=== PATIENT | female | born 1950 | race Caucasian/White ===

== ENCOUNTER → 2016-11-16 | Day surgery (SDC) | payer MEDICARE, OTHER ==
[~2016-11-16] VITALS: Ht 162.6 cm; Wt 68.0 kg
[~2016-11-16] MED LIST: HYDR-4003 PO; Lactated Ringer's 1,000 ML IV ONE; Lactated Ringer's 1,000 ML IV SCH; MetoCLOpramide 5 mg/mL 2 mL Inj IVPUSH PRN; Ondansetron 2 mg/mL 2 mL Inj IVPUSH PRN; PEPS1TAB11 PO; Propofol 10,000 mCg/mL 20 mL Inj ONE; TURM500C7 PO; UBID50TA3 PO
[2016-11-16 09:10] VITALS: BP 138/86; PULSE 64; RESP 16; O2SAT 96
[2016-11-16 10:27] VITALS: BP 105/69; PULSE 72; RESP 17; O2SAT 94
[2016-11-16 10:37] VITALS: BP 106/70; PULSE 61; RESP 15; O2SAT 95
[2016-11-16 10:47] VITALS: BP 129/81; PULSE 63; RESP 17; O2SAT 97
--- NOTE | 2016-11-16 10:52 | ENDO ---
[address] [address] ENDOSCOPY PROCEDURE PATIENT: SAL BURDICK V : 1950 MR#: [id number] ADMIT: 11/16/2016 JOB ID: [id number] DATE: 11/16/16 REFERRING PROVIDER: Maria Antonia Brenner PROCEDURE: Esophagogastroduodenoscopy with balloon dilatation and biopsy. INDICATIONS: A 66-year-old female with intermittent symptoms of heartburn and dysphagia. EGD is pursued. EQUIPMENT: GIF H 180 J. SEDATION: Monitored anesthesia as provided by Dr. Chapin Reina. COMPLICATIONS: None identified. PROCEDURAL INFORMATION: After the risks and benefits were explained, written and verbal informed consent was obtained. The patient was brought into the endoscopy suite and placed in the left lateral decubitus position. Sedation was achieved as above. The scope was introduced into the mouth through the bite block, and advanced to the second portion of the duodenum. The scope was slowly withdrawn to carefully examine the mucosa for any defects or lesions. Retroflexed views were accomplished in the stomach. The stomach was decompressed. Dilatation was pursued as described below. Ultimately, the stomach was decompressed. The scope removed from the patient who tolerated the procedure well. FINDINGS: 1. Duodenum: This appeared visually unremarkable from the bulb through to the second portion. 2. Stomach: No ulcers, no outlet obstruction. Retroflexed views disclosed a moderate sliding hiatal hernia. Mild diffuse erosive gastropathy was appreciated and random biopsy was taken for exclusion of Helicobacter. 3. Esophagus: The squamocolumnar junction correlated with the top of the gastric folds. The GEJ was at about 35 cm from the incisors. The patient had a moderate Schatzki ring with a small amount of inflammation consistent with LA grade A erosive esophagitis just overlapping the ring into the distal esophagus. The lumen size was perhaps down to about 11 or 12 mm. We used a 15-18 mm CRE balloon, and while the balloon was in the 15 mm position the patient hiccoughed, which caused a slight tear through the Schatzki ring. There was an immediate small amount of bleeding. We, therefore, elected to deflate the balloon entirely and not pursue any further dilatation in that the effect that we would have got with 18 was already obtained at that 15 mm eder with her hiccough. Bleeding was not sustained. Dilatation affect was moderate. We additionally took a disruptive biopsy through the other side of the Schatzki ring and submitted this for histopathology. The remainder of the esophagus was unremarkable. ENDOSCOPIC DIAGNOSES: 1. Moderate hiatal hernia. 2. LA grade A erosive esophagitis. 3. Moderate Schatzki ring status post dilatation. 4. Mild erosive gastropathy. RECOMMENDATIONS: 1. Await histopathology. 2. Followup in GI clinic in the next 4-6 weeks to gauge effect. 3. I would recommend a two week course of proton pump inhibitor therapy. 4. Repeat dilatation can be pursued as needed depending on response to today's intervention. 5. If Gonzales's epithelium is identified, then a repeat surveillance scope at the very least, would need to be accomplished in the next 9-12 months.
--- NOTE | 2016-11-16 12:05 | PCM.HPANE ---
Patient Data Date of Service: Nov 16, 2016 Surgeon Admitting Provider: Attending Provider:Rahul Salas MD Primary Care Physician:Maria Antonia Brenner MD Other Provider:Armand Livingston Anesthesia Reason for Visit GERD Ht/WT & BMI Height (Feet): 5 Height (Inches): 4 Weight (Kilograms): 68.04 Body Mass Index 25.00 Allergies Coded Allergies: Sulfa (Sulfonamide Antibiotics) (Verified Allergy, Unknown, 11/12/16) Past Anesthesia History Anesthesia History: Denies:: Abnormal Airway, Anesthesia Reactions, Fam Anesthesia Reaction, Fam Malignant Hypertherm, Malignant Hyperthermia Diabetes History Hx Diabetes?: No MRSA MRSA: No Medications Reported Medications Pepsin/Chelsea/Ox Bile/Anderson/Bet/Pap (Enzymatic Digestant ER Tablet)1 Each Tablet.er1 Each PO 11/12/16 Turmeric Root Extract (Turmeric)500 Mg [id number] Mg PO 11/12/16 Ubidecarenone (Coq10)50 Mg Tab.chew50 Mg PO 11/12/16 Discontinued Scripts Hydrocodone-Acetaminophen 5-325 mg 1 Each Tablet1-2 Tablet PO Q4H PRN For Pain # 20 TABLET Ref 0 Prov:Logan Macdonald MD 10/24/15 History History of ENT Problems?: Yes HEENT History: Positive for:: Dysphagia (occasional meat, bread or pills sticking) Denture Type: None Teeth Condition: Within Normal Limits Hx of Heart Problems?: No Cardiovascular History: Denies:: AICD Cardiac Surgery Pacemaker Valvular Heart Disease Hx of Respiratory Problem?: No Respiratory History: Denies:: Asthma Hx Neurologic Problems?: No Neurological History: Denies:: CVA Hx of GI Problems?: Yes Gastrointestinal History: Positive for:: Gastroesphageal Reflux Hx of Problems?: No HX of Peritoneal Dialysis: No Female Hx: Denies:: Currently Hx Musculoskeletal Problems?: Yes Musculoskeletal History: Positive for:: Joint Replacement (bilat hips) Denies:: Fibromyalgia Psycho Social History: Denies:: Anxiety Hx Depression Hx Surgeries?: Yes (acl left knee, bilat hip, 2 fx arms) Hx Any Other Health Problems?: No Hx Diabetes: No Hx Alcohol Use: Yes (3x week) Smoking Status: Unknown if Ever Smoker Stop/Bang Treated for Sleep Apnea?: No Do You Have a CPAP Machine?: No S-Snoring: Do You Snore Loudly: Yes T-Tired: feel tired, fatigued: No O-Obsered: Observed not breath: No P-Blood Pressure: treated: No B- Body Mass Index > 35 kg/m2: Yes A- Age over 50: Yes N- Neck Large Circumference: No G- Gender Male: No ELIZABETH Total Score: 3 ELIZABETH Risk Assessment: Low Risk, <3 Yes ELIZABETH Category 2: Yes Risk Assessment Category Category 1A: Patient has history of documented sleep apnea, and HAS NOT received any narcotic, sedative or anesthesia administration during this stay. Category 1B: Patient has history of documented sleep apnea, and HAS received any narcotic , sedative or anesthesia administration during this stay Category 2: Patient has SUSPECTED Obstructive Sleep Apnea, and HAS received any narcotic , sedative or anesthesia administration during this stay. Category 3: Patient has SUSPECTED Obstructive Sleep Apnea and HAS NOT received narcotic, sedative or anesthesia administration during this stay. Category 4: Outpatient in Procedural Areas with known sleep apnea or who screen positive for High Risk via the STOP/BANG questionnaire. Exam Exam Vital Signs Vital Signs Date Time Temp Pulse Resp B/P Pulse Ox O2 Delivery O2 Flow Rate FiO2 11/16/16 10:47 63 17 129/81 97 Room Air 11/16/16 10:37 61 15 106/70 95 Room Air 11/16/16 10:27 72 17 105/69 94 Room Air 11/16/16 09:10 36.5 64 16 138/86 96 Room Air General Appearance: Alert, Oriented X3 HEENT/AIRWAY: MP 2 Lungs: Clear to Auscultation Heart: Exam Unremarkable Meds/Labs/Diagnostics Admission Meds Current Medications Lactated Ringer's (Lr) 1,000 ml @ 10 mls/hr Q24H ONCE IV Last administered on 11/16/16t 10:05; Start 11/16/16 at 06:00; Stop 11/17/16 at 05:59 Plan Impression Patient chart reviewed, patient interviewed and anesthestic plan with risks, benefits, and alternatives discussed, and informed consent obtained. NPO per Anesth. Guidelines: Yes ASA Physical Status: ASA2 Mod Systemic Disease Anesthetic Plan: MAC Bene/Risks/Altern/Consents: Yes HP Complete Prior to Induction: Yes Chapin Reina MD Nov 16, 2016 12:05
--- NOTE | 2016-11-16 12:06 | PCM.ANEP1 ---
Post Anesthesia PACU Phase 1 Assessment Vital Signs Vital Signs Date Time Temp Pulse Resp B/P Pulse Ox O2 Delivery O2 Flow Rate FiO2 11/16/16 10:47 63 17 129/81 97 Room Air 11/16/16 10:37 61 15 106/70 95 Room Air 11/16/16 10:27 72 17 105/69 94 Room Air 11/16/16 09:10 36.5 64 16 138/86 96 Room Air Anesthetic Administered: MAC Level of Alertness: Awake, talking Pain: No Nausea or Vomiting: No CV Function & Hydration Stable: Yes Airway Device: Oxygen Delivery: Room Air Lungs: Clear to Auscultation PACU Phase 2 Assessment Complications: No Follow up Care: N/A Patient Instructions Provided: N/A Chapin Reina MD Nov 16, 2016 12:05
--- NOTE | 2016-11-17 15:36 | PATH ---
SURGICAL PATHOLOGY Attending Physician:Nina Lopez CASE STATUS: Signed Out PATIENT NAME: SAL BURDICK V. PID: [id number] : 1950 DATE COLLECTED:11/16/2016 21:31 SPECIMEN: 1: Esophagus, Biopsy 2: Gastric, Biopsy CLINICAL HISTORY: 1). SCHATZKI RING BIOPSY 2). GASTRIC BIOPSY, RULE OUT H.PYLORI FINAL DIAGNOSIS: 1.SCHATZKI' S RING, BIOPSY: PORTIONS OF SQUAMOCOLUMNAR JUNCTIONAL MUCOSA WITH NO DIAGNOSTIC ABNORMALITY. Negative for intestinal metaplasia/Gonzales' s metaplasia. No dysplasia or malignancy identified. 2.GASTRIC BIOPSY: GASTRIC BODY-TYPE MUCOSA WITH NO DIAGNOSTIC ABNORMALITY. No definite H. pylori organisms identified by H&E stain. Immunohistochemistry studies pending; results will be reported as an addendum. Very rare foci of possible intestinal metaplasia are present. Negative for dysplasia and malignancy. ICD10 GROSS DESCRIPTION: The specimen is received in two formalin filled containers labeled with the patient's name. 1). The specimen is labeled "Schatzki ring" and consists of 2 portions of tissue which aggregate to 0.2 x 0.2 x 0.2 CM. The specimen is entirely submitted in cassette 1A. 2). The specimen is labeled "gastric" and consists of a 0.4 x 0.3 x 0.2 CM portion of tissue which is entirely submitted in cassette 2A. 11/16/2016DC MICRO DESCRIPTION: See diagnosis. ICD-9 CODES: CPT CODES: 1: 52868 2: 36631, 56148 PROCEDURE/ADDENDA: Addendum SPI Addendum Diagnosis This is an addendum to report the results of immunohistochemistry. Addendum Comment An immunohistochemical stain was performed to evaluate for Helicobacter organisms and is NEGATIVE. A control stain showed appropriate reactivity. * This test was developed and its performance characteristics determined by [facility]. It has not been cleared or approved by the U.S. Food and Drug Administration. The FDA has determined that such clearance or approval is not necessary. This test is used for clinical purposes. It should not be regarded as investigational or for research. Electronically Signed Out Kaye Watkins MD Electronically Signed Out Ruth Roberto MD [facility] [address] [place] [address], [place] [address] Technical component performed at [facility], [address], [place], [address]
== END | disposition home or self-care (01) ==
LOC: END 00:29
PROVIDERS: ATTEND Internal Medicine Gastroenterology
DX: K22.2 Esophageal obstruction (principal); K44.9 Diaphragmatic hernia without obstruction or gangrene; K31.9 Disease of stomach and duodenum, unspecified; K21.9 Gastro-esophageal reflux disease without esophagitis; K20.8 Other esophagitis; R13.10 Dysphagia, unspecified; Z80.0 Family history of malignant neoplasm of digestive organs
CPT/HCPCS: 43239; 43249; 88305; 88342; J2704; J7120